=== PATIENT | male | born 2000 | race Two or more races ===

== ENCOUNTER 2025-07-27 23:52 | Emergency (ER) | payer MEDICAID, SELFPAY ==
[2025-07-27 23:54] VITALS: BMI 22.4
[2025-07-28 00:34] VITALS: BP 107/69; PULSE 67; RESP 18; TEMP 37; O2SAT 97
--- NOTE | 2025-07-28 00:40 | XR_ITS ---
Examination: CT lumbar spine, without contrast. 2-D sagittal reconstructions. 2-D coronal reconstructions. 3-D reconstructions. Date and time of exam:July 28, 2025, 0058 hrs. Indications: Low back pain beginning yesterday CTDI: vol (mGy):15.4 DLP: (mGycm):435 Technique: Multiple 1.25 mm axial sections of the lumbar spine without intravenous contrast have been obtained. 2-D sagittal and coronal reconstructions have been obtained. 3-D reconstructions have been obtained. Low dose protocols were performed. One or more of the following dose reduction techniques were used; automated exposure control, adjustment of the mA and/or KV according to patient size, use of iterative reconstruction technique. Findings: Adequate alignment lumbar vertebral bodies No lumbar vertebral body compression fracture Old fracture deformities left transverse processes L2-L3 L5-S1 3 mm central lumbar disc bulge, axial image 105, contiguous with the right and left S1 nerve roots L4-L5 2 mm central lumbar disc bulge More cephalad levels unremarkable Impression: No acute lumbar fracture L5-S1 3 mm central lumbar disc bulge contiguous with the right and left S1 nerve roots L4-L5 2 mm central lumbar disc bulge
--- NOTE | 2025-07-28 01:34 | PRELIM_ITS ---
CT scan of the lumbar spine without intravenous contrast (axial sections with sagittal and coronal reformats) 3D reconstructed images were also provided. July 28, 2025 0058 hours Clinical History: Back injury. Comparison: No prior study is available for comparison. Findings: There is no evidence of acute fracture or traumatic subluxation. There are old fractures of the left transverse processes of L2 and L3 vertebrae. Straightening of the lumbar spine is identified, which may be due to muscle spasm or positional. The vertebral body height and intervertebral disc spaces are normal. Mild diffuse disc bulges are seen at L4-L5 and L5-S1 levels. No significant central canal or neural foraminal narrowing. The soft tissues are unremarkable. No evidence of soft tissue fluid collection or hematoma. Impression: No evidence of acute fracture or traumatic subluxation. Other findings as described above. Suggest clinical correlation and follow up accordingly. Report Electronically Signed By: Sean Moore 07/28/2025 1:33:09 AM [EST]
[2025-07-28] MEDS: HYDROcodone/APAP 5/325 TABLET 1 TAB PO (01:44)
[2025-07-28] MEDS: KETOROLAC INJ 60 MG/2 ML VIAL IM (01:44)
--- NOTE | 2025-07-28 02:35 | PD.EDBACK ---
ED Back Injury Pain RME/HPI General Chief Complaint: Back Pain/Injury Stated Complaint: LOW BACK PAIN Time Seen by Provider: 07/28/25 00:00 Arrival date/time: 07/27/25 23:52 This is a case of 35-year-old male with no medical history came in in the emergency room due to lower back pain for 1 week worse today patient denies any injury or trauma denies any numbness weakness tingling sensation or incontinence to urine or stool persistence of the symptoms thus patient decided to sought consult here in the emergency room Limitations: no limitations Related Data Previous Rx's ?Medication ?Instructions ?Recorded baclofen 10 mg tablet 10 mg PO TID PRN muscle spasm #20 07/28/25 tabs hydrocodone 5 mg-acetaminophen 325 1 tab PO Q6H PRN pain #12 tabs 07/28/25 mg tablet Allergies Allergy/AdvReac Type Severity Reaction Status Date / Time No Known Allergies Allergy Verified 07/27/25 23:58 Review of Systems Review of Systems Systems Reviewed: All systems reviewed, normal except as documented Constitutional Constitutional: Reports system reviewed and no additional complaints, except as documented and Reports as per HPI Cardiovascular Cardiovascular: Reports system reviewed and no additional complaints, except as documented and Reports as per HPI Respiratory Respiratory: Reports system reviewed and no additional complaints, except as documented and Reports as per HPI Gastrointestinal Gastrointestinal: Reports system reviewed and no additional complaints, except as documented and Reports as per HPI Musculoskeletal Musculoskeletal: Reports system reviewed and no additional complaints, except as documented and Reports as per HPI Neurologic Neurologic: Reports system reviewed and no additional complaints, except as documented and Reports as per HPI Past Medical History Social History SMOKING STATUS: Never smoker ED Exam General Limitations: Present no limitations General appearance: Present alert, in no apparent distress and other (Patient is awake alert oriented not in distress nontoxic looking well-hydrated well-nourished) Head Head exam: Present atraumatic, normocephalic and normal inspection Eye Eye exam: Present normal appearance, PERRL and EOMI ENT ENT exam: Present normal exam, normal oropharynx and mucous membranes moist Neck Neck exam: Present normal inspection, full ROM and trachea midline; Absent tenderness, meningismus, lymphadenopathy or thyromegaly Chest Chest inspection: Present normal inspection and symmetric chest wall rise; Absent tenderness, rash or abscess Respiratory Respiratory exam: Present normal lung sounds bilaterally; Absent respiratory distress, wheezes, stridor, accessory muscle use or prolonged expiratory phase Cardiovascular Cardiovascular exam: Present regular rate, normal rhythm and normal heart sounds; Absent bradycardia, tachycardia, irregular rhythm, systolic murmur or diastolic murmur Abdominal Exam Abdominal exam: Present soft and normal bowel sounds; Absent distention, tenderness, guarding, rebound, rigidity, diminished bowel sounds, hyperactive bowel sounds, hypoactive bowel sounds or organomegaly Extremities Exam Extremities exam: Present normal inspection and full ROM Back Exam Back exam: Present normal inspection, full ROM, tenderness (Mild tenderness to L1 L5 ROM intact neurovascular intact) and muscle spasm; Absent CVA tenderness (R), CVA tenderness (L), paraspinal tenderness, vertebral tenderness, rashes, sciatic notch tenderness (R), sciatic notch tenderness (L), straight leg raise (R) or straight leg raise (L) Neurological Exam Neurological exam: Present alert, oriented X3, CN II-XII intact, normal gait and reflexes normal; Absent motor sensory deficit Psychiatric Psychiatric exam: Present normal affect and normal mood Skin Skin exam: Present warm, dry, intact and normal color Course Quality Measures none Orders Category Date Time Status CT lumbar spine wo con Stat Exams 07/28/25 00:40 Taken HYDROcodone*/APAP 5/325 [[place] 5/325] Med 07/28/25 00:40 Discontinued 1 tab PO X1 ONE Ketorolac Inj [Toradol Inj] Med 07/28/25 00:40 Discontinued 60 mg IM X1 ONE Vital Signs Vital signs: Vital Signs Temperature 98.6 F 07/28/25 00:34 Pulse Rate 67 07/28/25 00:34 Respiratory Rate 18 07/28/25 00:34 Blood Pressure 107/69 07/28/25 00:34 Pulse Oximetry (%) 97 07/28/25 00:34 Oxygen Delivery Method Room Air 07/28/25 00:34 Oxygen saturation is 97% on room air Back Pain / Injury MDM Narrative MDM Narrative:: This is a case of 35-year-old male with no medical history came in in the emergency room due to lower back pain for 1 week worse today patient denies any injury or trauma denies any numbness weakness tingling sensation or incontinence to urine or stool persistence of the symptoms thus patient decided to sought consult here in the emergency room physical examination patient is awake alert oriented not in distress nontoxic looking patient noted to mild to moderate tenderness on the L1 L5 no crepitation no deformity no redness no swelling no paraspinal no paravertebral tenderness leg raise exam is negative mild muscle spasm no CVA tenderness dedicated the rest of the physical examination neurological exam is normal and unremarkable patient was given Toradol [place] which condition markedly improved and resolved CT scan showed no fracture no dislocation but with muscle spasm and lumbar bulging disc I discussed with the patient the importance to see a neurosurgeon for MRI to ruled out herniated disc and pain management doctor for pain control he will follow-up with PCP in 2 days for reevaluation and return precaution the ER was advised Patient was discharged with comfortable condition walking with stable gait. Patient verbalized no further complains explained diagnosis and answered patient question. Patient is comfortable with the proposed management plan including the need to follow up with his/her primary care physician and any specialist if applicable Discussed patient for any urgent condition or worsening sx, He/She needed to go to emergency room immediately or call 911. Patient acknowledge the responsibility to follow up as instructed and to monitor her/his symptoms. For any persistence of the symptoms for more than 3-5 days return precaution advised. Discussed the result of the test and was given printed discharge instruction Patient data External records reviewed:: [facility] previous records Clinical information provided by:: patient Social determinants that could affect healthcare access:: none Patient has the following chronic illnesses:: None How is presenting disease/condition affected by chronic disease/condition?: no chronic disease Evaluation data The following diagnostics were reviewed and interpreted by me:: radiology exam(s) Lab and/or radiology exams considered but not ordered:: Reviewed Interpretation Summary: Reviewed Medications / Prescriptions Medications or Prescriptions considered but not ordered:: Given Medication administrations:: Medication Administration History Discontinued Medications Hydrocodone Bitart/Acetaminophen (Hydrocodone/Apap 5/325 Tablet) 1 tab PO X1 ONE Stop: 07/28/25 00:41 Last Admin: 07/28/25 01:44 Dose: 1 tab Documented By: ELIDA Ketorolac Tromethamine (Ketorolac Inj 60 Mg/2 Ml Vial) 60 mg IM X1 ONE Stop: 07/28/25 00:41 Last Admin: 07/28/25 01:44 Dose: 60 mg Documented By: ELIDA Given Consultations Consultation(s) initiated? (list below): No Diagnosis Differential diagnosis back pain/injury: lumbar radiculopathy, sciatica, strain of lumbar region and other (Back muscle spasm) Most likely diagnosis given after review of the tests above:: Back muscle spasm Admission Indicated Admission indicated?: not indicated Explain why admission is indicated or not indicated:: Not indicated Admission Request Was there a request for admission?: No Admission Attestation Admission request attestation: Not indicated Disposition Plan Disposition Plan: Discharge Discharge Attestation Discharge Attestation: The patient and all family members were given an opportunity to ask questions and understood the discharge instructions. Discharge instructions specifically effects, indications for sooner follow up or return to the emergency department, and the expected course of current diagnosis. Patient condition: Stable Discharge Plan Plan Patient Disposition: HOME (Self Care) Patient condition on transfer: Stable Prescriptions/Referrals Prescriptions/Med Rec: New hydrocodone-acetaminophen 5-325 mg tablet 1 tab PO Q6H MDD max 4 tabs per day PRN (Reason: pain) Qty: 12 0RF baclofen 10 mg tablet 10 mg PO TID PRN (Reason: muscle spasm) Qty: 20 0RF Referrals: Liza Parra FNP-C [Primary Care Provider] - In 1 week Problem List Clinical Impression: Back muscle spasm, Bulging lumbar disc Patient/Caregiver Discharge Instructions Education Materials: ED Back Spasm, No Trauma, ED Degenerative Disk Disease, ED Muscle Spasm Additional Instructions: Follow-up with your primary care physician in 2 days for reevaluation and to be referred to neurosurgeon for MRI of the lumbar area to rule out herniated disc and pain management doctor for pain control recurrence persistent worsening symptoms or any emergent concerns such as numbness weakness tingling sensation incontinence to urine or stool call 911 or go to the nearest emergency room take your medication as directed ice pack and warm compress as needed for pain Print Language: Belgian Stand Alone Forms: Ольга Award Info., Patient Portal Info Letter PA/PORTABLE SAWMILL OPERATOR Supervising Physician PA/JOSE Supervising Physician: Dr. Fay Engel
== END 2025-07-28 03:28 | disposition home or self-care (01) ==
PROVIDERS: Emergency Provider Emergency Medicine
DX: M51.360 Other intervertebral disc degeneration, lumbar region with discogenic back pain only (principal); M62.830 Muscle spasm of back
CPT/HCPCS: 72131; 96372; 99283; J1885; A9270